=== PATIENT | male | born 2005 | race Hispanic/Latino ===

== ENCOUNTER 2024-09-21 02:17 | Emergency (ER) | payer SELFPAY ==
[~2024-09-21] VITALS: Ht 182.9 cm; Wt 59.4 kg
[2024-09-21 02:23] VITALS: PULSE 92; RESP 16; TEMP 99.3; O2SAT 97
[2024-09-21] MEDS ORDERED: BENZONATATE 100 MG CAP ONE (02:31)
[2024-09-21] MEDS: BENZONATATE 100 MG CAP PO STA (02:34)
[2024-09-21 02:55] LABS: CORONAVIRUS COVID-19 AG NEGATIVE (NEGATIVE); INFLUENZA A AG NEGATIVE (NEGATIVE); INFLUENZA B AG NEGATIVE (NEGATIVE)
[2024-09-21] MEDS ORDERED: BENZONATATE100 MG PO (03:03)
== END 2024-09-21 03:06 | disposition home or self-care (01) ==
LOC: ER 02:25
DX: R05.9 Cough, unspecified (principal); B34.9 Viral infection, unspecified; R09.89 Other specified symptoms and signs involving the circulatory and respiratory systems; Z11.52 Encounter for screening for COVID-19
CPT/HCPCS: 99283